=== PATIENT | female | born 1955 | race Caucasian/White ===

== ENCOUNTER 2016-08-24 22:35 | Emergency (ER) | payer OTHER, MEDICARE | END 2016-08-24 22:48 | disposition left against medical advice (07) | LOC: CED 22:35 | DX: G43.909 Migraine, unspecified, not intractable, without status migrainosus (principal); R11.10 Vomiting, unspecified; Z53.29 Procedure and treatment not carried out because of patient's decision for other reasons ==

== ENCOUNTER → 2016-12-24 | Outpatient (CLI) | payer OTHER, MEDICARE | LOC: BRMIMAGING 09:20 | PROVIDERS: ATTEND Physician Assistant Medical | DX: R92.1 Mammographic calcification found on diagnostic imaging of breast (principal) | CPT/HCPCS: G0206 ==

== ENCOUNTER 2017-02-21 14:27 | Emergency (ER) | payer OTHER, MEDICARE ==
[2017-02-21 14:41] VITALS: BP 138/71; PULSE 67; RESP 16; TEMP 97.9; O2SAT 95
[2017-02-21] MEDS ORDERED: AZITHROMYCIN 250 MG TAB PO ONE (15:06)
--- NOTE | 2017-02-21 15:10 | EDPHY ---
H & P Time Seen by Provider: 02/21/17 14:50 HPI/ROS: While the triage note mentions tooth pain, the patient actually complains primarily of sinus pain. She explains that for a few weeks now she has had nasal congestion, postnasal drip and increasing facial pain to the maxillary and right frontal sinus. She occasionally has some retrobulbar headaches associated with this as well. She reports that the facial pain is moderate to severe worsens when she bends forward. She also had right upper canine tooth root canal on Tuesday through oral surgeon and given that procedure as well as a sinus symptoms the oral surgeon put her on Amoxil on Tuesday. She has been compliant with this but reports ongoing sinus pain and does not feel that it is helping. The tooth, however feels improved with no significant ongoing 2 symptoms at this time. The patient reports that she also has mild vertigo associated with her symptoms. No other associated symptoms except for feeling slightly foggy. ROS: No fevers or chills. No other constitutional symptoms. HEENT: No tinnitus. No ear pain. Pulmonary: No cough shortness of breath Cardiovascular: No heart palpitations or lightheadedness GI: No nausea or vomiting no abdominal pain. Integumentary: No skin rash Neuro: No focal numbness tingling weakness. No visual changes. 10 point ROS is otherwise negative. Smoking Status: Never smoked Physical Exam: Physical Exam Vital signs are normal. General: No acute distress HEENT: Nose: Swollen nasal mucosa bilaterally. sinus tenderness to percussion in the right frontal more than right maxillary sinus. Ears: External canal on right side has partial cerumen impaction. and tympanic membranes are clear with no erythema or abnormal findings bilaterally. Oropharynx: No erythema or exudates. No dysphonia. No drooling or stridor. She has no tenderness to the upper right canine tooth that had a root canal nor is there any gingival swelling or tenderness. No other dental abnormalities are noted Eyes: Pupils equal and react to light. Extraocular motions are intact. Neck: Supple with no meningismus. No lymphadenopathy Lungs: Clear to auscultation bilaterally with no rales, rhonchi or wheeze. No respiratory distress. Cardiac: Regular rate and rhythm with no murmur gallop or rub Skin: No rash or pallor. Neuro: GCS 15. Cranial nerves 2-12 grossly intact. Alert with no focal deficits noted. Initial differential diagnosis: Acute sinusitis, URI with sinus pressure, trigeminal neuralgia, tension headache Constitutional: Initial Vital Signs Temperature (C) 36.6 C 02/21/17 14:29 Heart Rate 67 02/21/17 14:29 Respiratory Rate 16 02/21/17 14:29 Blood Pressure 138/71 H 02/21/17 14:29 O2 Sat (%) 95 02/21/17 14:29 O2 Delivery Mode Room Air Allergies/Adverse Reactions: metoclopramide HCl [From Reglan] Allergy (Intermediate, Verified 02/21/17 14:43) prochlorperazine edisylate [From Compazine] Allergy (Intermediate, Verified 05/31 14:43) prochlorperazine maleate [From Compazine] Allergy (Intermediate, Verified 14:43) Home Medications: Medication Instructions Recorded Levothyroxine Sodium [Synthroid] 125 mcg PO 11/11/10 Oxycodone HCl [Oxycontin] 30 mg PO QID 11/11/10 Sumatriptan Succinate [Imitrex] 4 mg SQ 11/11/10 Azithromycin [Zithromax] 250 mg PO DAILY #4 tab 02/21/17 Fluticasone Nasal [Flonase Nasal 2 sprays NASAL DAILY #1 mdi 02/21/17 [place]] Neurontin 02/21/17 ZOLPIDEM TARTRATE 02/21/17 MDM/Departure - [facility] Medications Given: Discontinued Medications Azithromycin (Zithromax) 500 mg PO EDNOW ONE PRN Reason: Protocol Stop: 02/21/17 15:07 Last Admin: 02/21/17 15:14 Dose: 500 mg ED Course/Re-evaluation: This patient appears clinically well without evidence of [employer] infection or sepsis. I counseled regarding sinusitis and suggested that we start her on Zithromax and stop the Amoxil. I also suggested that she start Flonase steroid nasal spray. She will continue ibuprofen and her other meds. I think that her feeling foggy may be attributable to the OxyContin 30 mg four times daily that she takes for her chronic neck pain. - Depart Disposition: Home, Routine, Self-Care Clinical Impression: Acute sinusitis Qualifiers: Sinusitis location: frontal Recurrence: non-recurrent Qualified Code(s): J01.10 - Acute frontal sinusitis, unspecified Condition: Good Instructions: Sinusitis (ED) Additional Instructions: Diagnosis: Sinusitis Plan: Continue humidifier and ibuprofen Add Flonase in Zithromax antibiotic. Stop the Amoxil antibiotic Follow up with the Ear Nose Throat specialist listed below if use of ongoing symptoms despite the treatment plan. Prescriptions: Azithromycin [Zithromax] 250 mg PO DAILY #4 tab Fluticasone Nasal [Flonase Nasal [place]] 2 sprays NASAL DAILY #1 mdi Referrals: Cecilia Melendez PA [Primary Care Provider] - As per Instructions Neva Martinez MD [Medical Doctor] - As per Instructions
== END 2017-02-21 15:18 | disposition home or self-care (01) ==
LOC: CED 14:27
DX: J01.10 Acute frontal sinusitis, unspecified (principal)

== ENCOUNTER → 2017-10-14 | Outpatient (CLI) | payer OTHER, MEDICARE | LOC: BRMIMAGING 09:26 | PROVIDERS: ATTEND Physician Assistant Medical | DX: R92.8 Other abnormal and inconclusive findings on diagnostic imaging of breast (principal) ==